=== PATIENT | female | born 1975 | race Caucasian/White ===

== ENCOUNTER 2018-06-04 22:45 | Emergency (ER) | payer OTHER ==
[~2018-06-04] VITALS: Ht 165.1 cm; Wt 104.3 kg
[2018-06-04] MEDS ORDERED: AMBIEN 5 MG TABL5 M1 PO (23:21)
[2018-06-04] MEDS ORDERED: MOBIC15 MG PO (23:22)
[2018-06-04] MEDS ORDERED: TRADJENTA5 MG (23:22)
[2018-06-04] MEDS ORDERED: INVOKAMET 150-1 EACH PO (23:22)
[2018-06-04] MEDS ORDERED: CLARITIN10 MG PO (23:23)
[2018-06-04] MEDS ORDERED: LISINOPRIL5 MG PO (23:23)
[2018-06-04] MEDS ORDERED: CELEXA20 MG PO (23:23)
[2018-06-04] MEDS ORDERED: PEPCID20 MG PO (23:23)
[2018-06-04] MEDS ORDERED: PRAVACHOL20 MG PO (23:23)
[2018-06-05] MEDS ORDERED: CYCLOBENZAPRINE10 MG PO (00:33)
[2018-06-05] MEDS ORDERED: NORCO 5-325 TA1 EACH PO (00:33)
[2018-06-05 00:55] VITALS: BP 119/80
== END 2018-06-05 00:56 | disposition home or self-care (01) ==
LOC: M.ERS 22:45
DX: M54.41 Lumbago with sciatica, right side (principal); M54.42 Lumbago with sciatica, left side; E11.9 Type 2 diabetes mellitus without complications; I10 Essential (primary) hypertension; E78.00 Pure hypercholesterolemia, unspecified; F17.210 Nicotine dependence, cigarettes, uncomplicated; Z90.710 Acquired absence of both cervix and uterus; Z88.8 Allergy status to other drugs, medicaments and biological substances